=== PATIENT | male | born 1985 | race Caucasian/White ===

== ENCOUNTER → 2016-08-04 | Day surgery (SDC) | payer OTHER ==
[2016-07-29 09:06] VITALS: Ht 182.9 cm; Wt 116.4 kg
[~2016-08-04] VITALS: Ht 182.9 cm; Wt 116.4 kg
[~2016-08-04] MED LIST: ATROPINE SULFATE 0.1 MG/ML 5ML SYR IV PRN; BUPIVACAINE 0.5 % 5 MG/1 ML MPF 30ML VIAL ONE; CEFAZOLIN SOD 1 GM VIAL ONE; CEPH500C2 PO; DEXAMETHASONE SOD INJ 4 MG/ML VIAL ONE; EpHEDrine SULFATE INJ 50 MG/ML AMP IV PRN; FENTANYL CITRATE INJ 50 MCG/1 ML 2 ML VIAL IV PRN; FENTANYL CITRATE INJ 50 MCG/1 ML 2 ML VIAL ONE; HYDR-5688 PO; HYDROCODONE/ACETAMOPHEN 5/325MG TAB PO PRN; HYDROmorphone INJ 1 MG/ML SYR IV PRN; LACTATED RINGER'S 1000ML 1,000 ML IV SCH; LIDOCAINE HCL 2% 2 ML VIAL (20MG/ML) ONE; LIDOCAINE/EPINEPHRINE 1% INJ 50 ML VIAL ONE; MIDAZOLAM HCL 1 MG/ML 2ML VIAL ONE; ONDANSETRON INJ 2 MG/ML 2 ML VIAL IV PRN; ONDANSETRON INJ 2 MG/ML 2 ML VIAL ONE; PROPOFOL IV EMULSION 10 MG/ML 20 ML VIAL IV ONE; SODIUM CHLORIDE 0.9% 1000ML 1,000 ML IV SCH; SODIUM CHLORIDE 0.9% INJ 10 ML VIAL ONE
--- NOTE | 2016-08-04 11:51 | Discharge Instructions-[facility] ---
Discharge Instructions Visit Reason for Visit: Right Inguinal Hernia Discharge Discharge Diagnosis / Problem: Rt inguinal hernia Discharge Goals Goal(s): Decrease discomfort, Improve function, Improve disease control Activity Recommendations Activity Limitations: as noted below (lifting less than 20 lbs) Exercise/Sports Limitations: until after follow-up appointment May Resume Sexual Activity: when tolerated Shower/Bathe: keep incision dry (may shower over incision on 08/06) Driving or Machine Use: may drive in 5-7 days SPECIAL CARE INSTRUCTIONS: * Cover incisions and change daily for comfort/drainage. * Leave steri strips in place * Avoid constipation- may use Senokot S and Milk of magnesia twice daily as directed on the package * May use ibuprofen for pain as tolerated. * Expect some swelling and bruising. Call your doctor if: * Temperature above 101 degrees * Pain not relieved by pain medicine ordered * There is increased drainage or redness from any incision * You have any unanswered questions or concerns [phone]. FOLLOW UP VISIT: If not already scheduled, please call the office for a follow-up visit. for next week- some sutures OFFICE PHONE NUMBER: Dr. Ambrosio Office Anesthesia . Post Anesthesia Instructions: If you have had General Anesthesia or IV Sedation: * Do not drive today. * Resume driving when surgeon permits. * Do not make important decisions or sign legal documents today. * Call surgeon for: 1. Temperature elevations greater than 101 degrees F. 2. Uncontrollable pain. 3. Excessive bleeding. 4. Persistent nausea and vomiting. 5. Medication intolerance (nausea, vomiting or rash). * For nausea and vomiting use only clear liquids such as: tea, soda, bouillon until nausea subsides, then gradually increase diet as tolerated. * If you have any concerns or questions, call your surgeon's office. If physician is unavailable and it is an emergency, call 911 or go to the nearest emergency room. . Diet Recommendations Home Diet: resume previous diet Pending Studies Studies pending at discharge: no Medical Emergencies . Who to Call and When: Medical Emergencies: If at any time you feel your situation is an emergency, please call 911 immediately. . Non-Emergent Contact Non-Emergency issues call your: Surgeon . . "Provider Documentation" section prepared by Dominic Ambrosio.
[2016-08-04] MEDS: CEFAZOLIN 2000 MG/60 ML D5W IV SCH ×2 (11:52→12:44)
--- NOTE | 2016-08-04 12:51 | [facility] Operative Report ---
Operative Report Operative Date Aug 04, 2016. Pre-Operative Diagnosis Rt inguinal hernia Post-Operative Diagnosis same Procedure(s) Performed Rt ing hernia repair Surgeon Hebert Slinger Sequins Surgeon(s) Jacob Graham Findings indirect defect Anesthesia gen/ LMA Complication(s) None Disposition Recovery Room / PACU I attest to the content of the Intraoperative Record and any orders documented therein. Any exceptions are noted below.
--- NOTE | 2016-08-04 13:06 | Medical Student: [facility] ---
Immediate Operative Summary Operative Date Aug 04, 2016. Pre-Operative Diagnosis Right Inguinal Hernia Post-Operative Diagnosis Right indirect inguinal hernia Procedure(s) Performed Open right inguinal hernia reduction and repair. Surgeon Dr. Ambrosio Can Conveyor Feeder Surgeon(s) Wilfrido Graham Estimated Blood Loss <5mL Findings Indirect inguinal hernia, normal appearing vas deferens and spermatic cord. All other anatomy visualized unremarkable. Specimens None Complication(s) None Disposition Recovery Room / PACU
--- NOTE | 2016-08-04 13:10 | OPERATIVE REPORT ---
DATE OF OPERATION: 08/04/2016 NAME OF OPERATION: Right inguinal hernia repair. PREOPERATIVE DIAGNOSIS: Right inguinal hernia. POSTOPERATIVE DIAGNOSIS: Same with indirect defect. STAFF SURGEON: Dr. Ambrosio. [employer] E[employer]IPMENT TECHNICIAN: Wilfrido Graham PA-C. OPERATION AND FINDINGS: PROCEDURE: The patient was brought in the operating room and placed on the operating table in supine position. His right lower quadrant was prepped and draped in usual fashion. 0.5% plain Marcaine was used to anesthetize the skin and subcutaneous tissue. Incision made carrying dissection down to the external oblique fibers incised along their length to the external ring mobilizing the cord structures. The patient had a indirect hernia. The sac was dissected away from the cord structures then reduced. The internal ring was reinforced using a mesh plug which was secured to surrounding tissue using 2-0 Ethibond suture, then a mesh patch placed into the floor of the canal around the cord structures and secured using 2-0 Ethibond suture. The site was irrigated with antibiotic solution. The external oblique fibers closed over the mesh and around the cord structures using 2-0 Ethibond suture, then the site anesthetized using 0.5% plain Marcaine and then the subcutaneous tissue reapproximated using 2-0 plain catgut suture, then the skin reapproximated using 4-0 nylon suture and Steri-Strips. The patient was transferred to recovery room in stable condition. I attest to the content of the Intraoperative Record and any orders documented therein. Any exceptio ns are noted below.
[2016-08-04 13:43] VITALS: TEMP 36.6
--- NOTE | 2016-08-04 13:51 | Anesthesia Progress Nt - [facility] ---
Anesthesia Post Op Note Date & Time Aug 04, 2016 at 13:50 Vital Signs Pain Intensity: 5 Vital Signs Past 12 Hours Date Time Temp Pulse Resp B/P Pulse Ox O2 Delivery O2 Flow Rate FiO2 08/04/16 13:35 69 16 96 08/04/16 13:35 70 16 08/04/16 13:34 66 15 08/04/16 13:34 67 15 95 08/04/16 13:33 130/91 08/04/16 13:30 36.4 75 20 130/91 96 Room Air 08/04/16 13:29 70 20 08/04/16 13:29 70 20 94 08/04/16 13:28 128/86 08/04/16 13:27 62 18 08/04/16 13:27 64 18 97 08/04/16 13:23 126/94 08/04/16 13:22 70 12 95 08/04/16 13:22 72 12 08/04/16 13:21 71 16 08/04/16 13:21 64 16 97 08/04/16 13:18 126/89 08/04/16 13:16 68 17 08/04/16 13:16 67 17 98 08/04/16 13:13 127/96 08/04/16 13:11 73 14 08/04/16 13:11 70 14 98 08/04/16 13:10 78 17 08/04/16 13:10 78 17 97 08/04/16 13:09 132/95 08/04/16 13:05 73 15 100 08/04/16 13:05 74 15 08/04/16 13:03 119/89 08/04/16 13:00 80 11 99 08/04/16 13:00 83 11 08/04/16 12:58 141/93 08/04/16 12:55 36.2 73 20 119/86 100 Mask 8 08/04/16 12:55 81 17 08/04/16 12:55 81 17 99 08/04/16 11:07 36.9 79 16 136/85 97 Room Air Notes Mental Status: alert / awake / arousable, participated in evaluation Pt Amnestic to Procedure: Yes Nausea / Vomiting: adequately controlled Pain: adequately controlled Airway Patency, RR, SpO2: stable & adequate BP & HR: stable & adequate Hydration State: stable & adequate Anesthetic Complications: no major complications apparent
[2016-08-04 14:08] VITALS: BP 127/81; PULSE 62; O2SAT 98
== END | disposition home or self-care (01) ==
LOC: X.SURG 10:51
PROVIDERS: ATTEND Surgery
DX: K40.90 Unilateral inguinal hernia, without obstruction or gangrene, not specified as recurrent (principal)